=== PATIENT | female | born 1965 | race Caucasian/White ===

== ENCOUNTER 2019-05-04 20:51 | Emergency (ER) | payer BC ==
[~2019-05-04] VITALS: Ht 170.2 cm; Wt 91.8 kg
[2019-05-04 21:04] VITALS: Ht 170.2 cm; Wt 91.8 kg
[2019-05-04] MEDS ORDERED: VITAMIN D31000 UNI2 (21:06)
[2019-05-04] MEDS ORDERED: BAYER CHEWABLE81 MG PO (21:07)
[2019-05-04] MEDS ORDERED: ZYRTEC10 MG PO (21:07)
[2019-05-04 22:40] LABS: BASOPHILS 0.2 % (0-2); EOSINOPHILS 0.8 % (0-7); HEMATOCRIT 39.9 % (36.0-48.0); HEMOGLOBIN 13.8 g/dL (12-16); IMMATURE GRANULOCYTES 0.4 % (0-5); LYMPHOCYTES 7.8 % (15-50); MCH 29.4 pg (26.0-34.0); MCHC 34.6 g/dL (31.0-37.0); MCV 85.1 fL (80.0-100.0); MEAN PLATELET VOLUME 9.6 fL (7.4-10.4); MONOCYTES 5.1 % (2-11); NEUTROPHILS 85.7 % (40-80); PLATELET COUNT 343 10x3/uL (130-400); RBC 4.69 10x6/uL (4.00-5.40); RDW 12.4 % (11.5-14.5)
[2019-05-04 23:00] LABS: ALBUMIN 3.5 g/dL (3.4-5.0); ALKALINE PHOSPHATASE 43 U/L (46-116); ALT (SGPT) 20 U/L (10-68); BILIRUBIN - TOTAL 0.47 mg/dL (0.2-1.3); CALC OSMOLALITY 277 mosm/kg (275-300); CALCIUM 8.5 mg/dL (8.5-10.1); CARBON DIOXIDE 25.6 mmol/L (21.0-32.0); CHLORIDE - SERUM 107 mmol/L (98-107); CREATININE - SERUM 0.7 mg/dL (0.6-1.3); GLUCOSE 107 mg/dL (74-106); POTASSIUM - SERUM 3.4 mmol/L (3.5-5.1); PROTEIN - SERUM 7.1 g/dL (6.4-8.2); SODIUM 140 mmol/L (136-145); UREA NITROGEN 11 mg/dL (7-18); eGFR NON AFRICAN AMERICAN > 90 mL/min (90-120)
[2019-05-05] VITALS: BP 146/84
== END 2019-05-05 01:15 | disposition other institution (70) ==
LOC: D.ER 20:51
PROVIDERS: Family Medicine
DX: K22.2 Esophageal obstruction (principal)